=== PATIENT | female | born 2000 | race African-American/Black ===

== ENCOUNTER 2024-09-04 14:59 | Outpatient (CLI) | payer OTHER, SELFPAY ==
--- OUTSIDE RECORDS SUMMARY | 2024-09-04 15:04 | XMS_ITS | Patient Health Record ---
Author Organization Formerly [facility], [facility] Address [address] [place] [address] Care Team Providers Care Regulatory Affairs Intern Name Role Phone RickSosa hernandez Primary Care Provider Cata Cordero Unavailable [phone] Annie Esquivel Unavailable [phone] Allergies Allergen (clinical drug ingredient) Drug/Non Drug Allergy documented on EMR Reaction Allergy Type Onset Date Status Pollen pollen (uncoded) congestion Allergy Ac tive Results Component Value Reference Range Notes One Specimen Identifier Reviewed date:12/19/2023 08:51:16 AM Interpretation: Performing Lab:[facility], [address] [facility], Phone - [phone], Director - Lexus Notes/Report: One Specimen Identifier The specimen received included only one patient identifier on the primary collection container. Our laboratory accrediting agency states All primary specimen containers must be labeled with 2 identifiers at the time of collection. Valproic Acid (Depakote)(R), S Reviewed date:12/19/2023 08:50:23 AM Interpretation: Performing Lab:[facility], [address] [facility], Phone - [phone], Director - Lexus Notes/Report: Valproic Acid (Depakote)(R),S 27 50-100 ug/m L Detection Limit = 4 <4 indicates None Detected . Toxicity may occur at levels of 100-500. Measurements of free unbound valproic acid may improve the assess- ment of clinical response. Reason For Referral Reason Therapy- has [facility] ins urance Diagnosis 1 Bipolar 1 disorder, depressed (F31.9) Diagnosis 2 YEMI (generalized anx iety disorder) (F41.1) Referral Organization [facility] Referring Provider First Name Sosa Referring Provider Last Name Rick Referring Provider Speciality Psychiatry Referred Provider Specialty [facility]al [facility] General Notes Sosa Cabrera 03:48:24 PM > Client with Bipolar 1 and YEMI. Does not have many social supports in place outside of family. States she would like to begin therapy again (last did with Citlaly at [facility]). Please refer for how to start. Thank you! Clinical Notes Mary Read 08/13/2024 12:50:01 PM >HN called the client to provide her with the number to [facility] to see if she needs to complete the intake or if she is still open in TIER. Client knows that the intake can take about 15mins. Client stated she would call on her own, and she is aware she can reach out to the HN if she needs assistance at any time., Mary Read 08/27/2024 11:40:19 AM >HN looked in TIER and saw a note that the client completed the intake for therapy, but there were no open appointments to get her scheduled for her first patient appointment. HN reached out to the the client to remind her that today was a same day appointment day and so is tomorrow. HN and client called [facility] again for a second time and still could not get the client an appointment. Referral Priority Routine Medications Medication SIG (Take, Route, Frequency, Duration) Notes Start Date End Date Status traZODone HCl 50 MG Oral for 30 Days Not-Taking Topiramate 25 MG 1 tablet with evenin g meal for 14 days, then 2 tabs with evening meal Orally Once a day for 30 days 03/12/2024 Not-Taking QUEtiapine Fumarate 400 MG 1 tablet Oral Once a day for 30 days Active Social History Tobacco Use: Social History Observation Description Date Details (start date - stop date) Never Smoker NA - NA Sex Assigned At : Social History Observation Description Sex Assigned At Female Alcohol Screen (Audit-C) Question Answer Notes Did you have a drink containing alcohol in the p ast year? Yes Tobacco Control (Standard) Question Answer Notes Tobacco use: Nonsmoker Problems Problem Type SNOMED Code ICD Code Onset Dates Problem Status W/U Status Risk Notes Problem Morbid obesity (disorder) (986887680) Morbid (severe) obesity due to excess calories (E66.01) Active confirmed Problem Depression (904583583) Depression (F32.9) 2 Active confirmed Problem Obesity (190669322) Obesity (E66.9) Active confirmed Problem Generalized anxiety disorder (85844579) YEMI (generalized anxiety disorder) (F41.1) Active confirmed Problem Weight loss (756590273) Weight loss (R63.4) Active confirmed Problem Liver enzymes abnormal (535966555) Abnormal liver enzymes (R74.8) Active confirmed Problem Bipolar disorder (03986960) Bipolar 1 disorder, depressed (F31.9) Active confirmed Problem Obesity (609332830) Obesity (BMI 30-39.9) (E66.9) Active confirmed Problem Follow-up status (761295520) Follow up (Z09) Active confirmed Problem Obesity (067444568) Obesity, unspecified classification, unspecified obesity type, unspecified whether serious comorbidity present (E66.9) Active confirmed Vital Signs Heart Rate 60 /min 08/11/2024 Temperature 98.2 degrees Fahrenheit 08/11/2024 Respiratory Rate 16 /min 08/11/2024 Blood pressure diastolic 70 mm Hg 08/11/2024 Oximetry 98 % 08/11/2024 Height 59 in in 08/11/2024 Blood pressure systolic 120 mm Hg 08/11/2024 Weight 175 lbs lbs 08/11/2024 BMI 35.34 kg/m2 08/11/2024 Encounters Encounter Location Date Provider Diagnosis [address] [place] [address] 12/14/2023 Cata Cordero [address] [place] [address] 10/26/2023 Cata Cordero Nutritional counseling Z71.3 and Bipolar 1 disorder, depressed F31.[address] [place] [address] 12/14/2023 Cata Cordero Bipolar 1 disorder, depressed F31.9 and YEMI (generalized anxiety disorder) F41.[address] [address] 12/17/2023 Sosa Cabrera [address] [address] 03/03/2024 Sosa Cabrera Nutritional counseling Z71.3 ; Bipolar 1 disorder, depressed F31.9 and YEMI (generalized anxiety disorder) F41.[address] [address] 03/12/2024 Annie Esquivel Nutritional counseling Z71.3 ; Establishing care with new doctor, encounter for Z71.89 ; Screening for deficiency anemia Z13.0 ; Screening for metabolic disorder Z13.228 ; Exposure to potential infection Z20.9 and Obesity (BMI 30-39.9) E66.[address] [address] 03/12/2024 Annie Esquivel Exposure to potential infection Z20.9 ; Screening for deficiency anemia Z13.0 and Screening for metabolic disorder Z13.228 [address] [address] [place] [address] 03/25/2024 Sosa Cabrera Nutritional counseling Z71.3 ; Bipolar 1 disorder, depressed F31.9 and YEMI (generalized anxiety disorder) F41.[address] [place] [address] 08/11/2024 Sosa Cabrera Nutritional counseling Z71.3 ; Bipolar 1 disorder, depressed F31.9 and YEMI (generalized anxiety disorder) F41.1 [facility] [place] [address] 02/25/2024 Sosa Cabrera [facility] [address] [place] [address] 10/02/2023 Sosa Cabrera Bipolar 1 disorder, depressed F31.9 Replaced By [facility] [address] [address] 12/06/2023 Cata Cordero Bipolar 1 disorder, depressed F31.[address] [place] [address] [place] [address] 01/24/2024 Sosa Rick Replaced By [facility] [address] [place] [address] 03/11/2024 Sosa Rick [address] [place] [address] 03/14/[address] [place] [address] [place] [address] 03/18/2024 Sosa Rick Assessments Encounter Date Diagnosis (ICD Code) Assessment Notes Treatment Notes Treatment Clinical Notes Section Notes 10/02/2023 Bipolar 1 disorder, depressed (ICD-10 - F31.9) 10/26/2023 Nutritional counseling (ICD-10 - Z71.3) 12/06/2023 Bipolar 1 disorder, depressed (ICD-10 - F31.9) 12/14/2023 Bipolar 1 disorder, depressed (ICD-10 - F31.9) Continue current medications, seroquel is being taken PRN, but has plenty. Continue services as scheduled. Depakote level ordered. May self-administer medications or be administered own oral medications per [facility] protocols. Provided informed consent with understanding of side effects, adverse effects, risks and benefits as well as alternative treatments as previously discussed and with the above recommended medications & other aspects of the treatment program. Agrees to return sooner if symptoms worsen or suicidal or homicidal ideations occur. 03/03/2024 Nutritional counseling (ICD-10 - Z71.3) 03/12/2024 Establishing care with new doctor, encounter for (ICD-10 - Z71.89) 03/12/2024 Nutritional counseling (ICD-10 - Z71.3) 03/12/2024 Exposure to potential infection (ICD-10 - Z20.9) 03/25/2024 Nutritional counseling (ICD-10 - Z71.3) 08/11/2024 Nutritional counseling (ICD-10 - Z71.3) 08/11/2024 Bipolar 1 disorder, depressed (ICD-10 - F31.9) Take as prescribed. Reviewed purpose (mood stability), benefits, and risks - low blood pressure, metabolic syndrome with high cholesterol or high blood sugars, change in cardiac conduction, nausea, vomiting, temporary or permanent movement disorders, and akathisia. 03/12/2024 Screening for deficiency anemia (ICD-10 - Z13.0) 03/25/2024 Bipolar 1 disorder, depressed (ICD-10 - F31.9) Continue with quetiapine, discussed possible movement disorder. client reports this has improved some with stopping the haloperidol. encouraged client to continue monitoring movements and if they do not go away or if they worsen, to and let the office know at her earliest convenience. discussed the importance of this in length. next appt in-office to monitor movements. Take as prescribed. Reviewed purpose (mood stability), benefits, and risks - low blood pressure, metabolic syndrome with high cholesterol or high blood sugars, change in cardiac conduction, nausea, vomiting, temporary or permanent movement disorders, and akathisia. Explained that no medication can be guaranteed to be 100% safe for baby or mother. 03/12/2024 Screening for deficiency anemia (ICD-10 - Z13.0) 03/03/2024 Bipolar 1 disorder, depressed (ICD-10 - F31.9) States doing well with current regimen. Is open to MENDOZA with haloperidol. Wants to talk with her OBGyn regarding future fertility. May discuss further at next appt regarding MENDOZA. Continue current regimen. Client states not actively tring to become . Wean down and off benztropine if/as tolerated. Take as prescribed. Reviewed purpose (mood stability), benefits, and risks - low blood pressure, metabolic syndrome with high cholesterol or high blood sugars, change in cardiac conduction, nausea, vomiting, temporary or permanent movement disorders, and akathisia. Explained that no medication can be guaranteed to be 100% safe for baby or mother. 12/14/2023 YEMI (generalized anxiety disorder) (ICD-10 - F41.1) 10/26/2023 Bipolar 1 disorder, depressed (ICD-10 - F31.9) She had not taken Seroquel since leaving the hospital. She worries about the Seroquel weight gain. has not taken Latuda. it looks like it should be covered with insurance. Has taken Zyprexa, Abilify, and Seroquel. Labs were recently done in the hospital. May self-administer medications or be administered own oral medications per [place] protocols. Provided informed consent with understanding of side effects, adverse effects, risks and benefits as well as alternative treatments as previously discussed and with the above recommended medications & other aspects of the treatment program. Agrees to return sooner if symptoms worsen or suicidal or homicidal ideations occur. 03/03/2024 YEMI (generalized anxiety disorder) (ICD-10 - F41.1) Encouraged therapy. 03/12/2024 Screening for metabolic disorder (ICD-10 - Z13.228) 03/12/2024 Screening for metabolic disorder (ICD-10 - Z13.228) 03/25/2024 YEMI (generalized anxiety disorder) (ICD-10 - F41.1) Encouraged therapy. 08/11/2024 YEMI (generalized anxiety disorder) (ICD-10 - F41.1) Encouraged therapy. 03/12/2024 Exposure to potential infection (ICD-10 - Z20.9) 03/12/2024 Obesity (BMI 30-39.9) (ICD-10 - E66.9) 03/03/2024 Other Reasons, potential benefits, potential risks, interactions and side effects of all medications were discussed. The Patient/Guardian asked appropriate questions, appeared to understand the answers, and decided to accept the treatment and continue being followed. Alternatives and expected course without treatment were reviewed. The Patient/Guardian is aware of the need to contact the office or return for an earlier appointment if any problems or concerns arise. May also contact the 24-hour crisis hotline ([facility]), refer to the closest emergency room or call 911 if new symptoms arise of existing symptoms worsen. The Patient/Guardian is aware that this would apply to symptoms like: suicidal ideation, homicidal ideation, high risk behaviors, manic symptoms, psychotic symptoms, physical symptoms, or any other symptoms that may be dangerous to self or others. Greater than 50% of time spent on coordination and counseling where psychopharmacology as well as psychotherapeutic interventions were discussed along with review of treatments in the past. Education provided concerning need for adequate hydration. Patient/Guardian verbalized understanding of education, treatment plan and follow up. 03/25/2024 Other Reasons, potential benefits, potential risks, interactions and side effects of all medications were discussed. The Patient/Guardian asked appropriate questions, appeared to understand the answers, and decided to accept the treatment and continue being followed. Alternatives and expected course without treatment were reviewed. The Patient/Guardian is aware of the need to contact the office or return for an earlier appointment if any problems or concerns arise. May also contact the 24-hour crisis hotline ([facility]), refer to the closest emergency room or call 911 if new symptoms arise of existing symptoms worsen. The Patient/Guardian is aware that this would apply to symptoms like: suicidal ideation, homicidal ideation, high risk behaviors, manic symptoms, psychotic symptoms, physical symptoms, or any other symptoms that may be dangerous to self or others. Greater than 50% of time spent on coordination and counseling where psychopharmacology as well as psychotherapeutic interventions were discussed along with review of treatments in the past. Education provided concerning need for adequate hydration. Patient/Guardian verbalized understanding of education, treatment plan and follow up. This session was completed telephonically with client/parental/guard fercho consent: Unable to determine movement status, assess appearance, affect, AIMS, or vital signs. 08/11/2024 Other Reasons, potential benefits, potential risks, interactions and side effects of all medications were discussed. The Patient/Guardian asked appropriate questions, appeared to understand the answers, and decided to accept the treatment and continue being followed. Alternatives and expected course without treatment were reviewed. The Patient/Guardian is aware of the need to contact the office or return for an earlier appointment if any problems or concerns arise. May also contact the 24-hour crisis hotline ([facility]), refer to the closest emergency room or call 911 if new symptoms arise of existing symptoms worsen. The Patient/Guardian is aware that this would apply to symptoms like: suicidal ideation, homicidal ideation, high risk behaviors, manic symptoms, psychotic symptoms, physical symptoms, or any other symptoms that may be dangerous to self or others. Greater than 50% of time spent on coordination and counseling where psychopharmacology as well as psychotherapeutic interventions were discussed along with review of treatments in the past. Education provided concerning need for adequate hydration. Patient/Guardian verbalized understanding of education, treatment plan and follow up. Plan Of Treatment No Information Insurance Providers Payer Name Payer Address Payer Phone Subscriber Number Group Number Insured Name Patient Relationship to Insured Coverage Start Date Coverage End Date [facility] [address] [place] [address] [id number] [place] Self - patient is the insured 2 3 [facility] [address] [place] [address] [id number] Harsh Madisonartemio Jones Child - Insured has Financial Responsibility 3 MEDICAID [address] [facility] [address] [id number] [place] [facility] Self - patient is the insured 2 2 Medical (General) History Medical History History ICD Code Denies Past Medical History Surgical History Surgery Date(Month/Year) Hospitalization History Reason Date(Month/Year) [facility] 09/2023 [facility] 01/2024
--- OUTSIDE RECORDS SUMMARY | 2024-09-04 15:04 | XMS_ITS | Clinical Summary ---
Author Organization [facility] Address [address] [place] [address] Care Team Providers Care Mental Health Aide Name Role Phone None, Physician Primary Care Provider Unavailabl e Source Comments [facility],non-owned Affiliates and Associated Physician Practices is amultiple site organization consisting of ambulatory clinics and hospital sitesin [place], [place] and [place]. This disclosure is being madepursuant to the Care Everywhere program and may not contain all information available regarding this patient. Last updated [email or web address] [facility] Allergies No known active allergies Medications * This document contains information received from the source organization and may not represent a complete record from that organization. * Be aware that medications may not be up to date on this document. Alwaysverify current medications with the patient. hydrOXYzine HCl (Atarax) 50 MG tabletIndicati ons:Anxiety Take 1 (one) tablet by mouth every 6 hours as needed Reasons: Feeling Anxious 30 tablet 06/20/2024 12:02 PM INSTRUCTOR OF EDUCATION 5 Active divalproex ER 24hr (Depakote ER) 500 MG tabletIndicati ons:Mixed Bipolar Affective Disorder Take 3 (three) tablets by mouth at bedtime Reasons: MIXED BIPOLAR AFFECTIVE DISORDER 90 tablet 06/20/2024 12:02 PM INSTRUCTOR OF EDUCATION 5 Active traZODone (Desyrel) 50 MG tabletIndicati ons:Insomnia Take 1 (one) tablet by mouth nightly as needed for Insomnia Reasons: Trouble Sleeping 30 tablet 06/20/2024 12:02 PM INSTRUCTOR OF EDUCATION 5 Active prazosin (Minipress) 1 MG capsuleIndicat ions:Nightmare s,Posttraumati c Stress Disorder Take 1 (one) capsule by mouth at bedtime Reasons: Frightening Dreams, Posttraumatic Stress Disorder 30 capsule 06/20/2024 12:02 PM INSTRUCTOR OF EDUCATION 5 Active ziprasidone (Geodon) 40 MG capsuleIndicat ions:Bipolar Mood Disorder Take 1 (one) capsule by mouth 2 times daily with morning and evening meal Reasons: Manic-Depression 60 capsule 06/20/2024 12:02 PM INSTRUCTOR OF EDUCATION 5 Active Active Problems Problem Noted Date Diagnosed Date Bipolar disorder, current ep isode manic without psychotic features, severe 06/01/2024 Cannabis use disorder, mild, abuse 06/01/2024 Post-traumatic stress disorder, chronic 06/01/19 25 Marijuana use 05/31/2024 Manic behavior 05/31/2024 Bizarre behavior 05/31/2024 Social History Tobacco Use Types Packs/Day Years Used Date Smoking Tobacco: Never Passive Smoke Exposure: Never Smokeless Tobacco: Never Tobacco Cessation:Counseling Given: Yes Alcohol Use Standard Drinks/Week Comments Yes 0 (1 standard drink = 0.6 oz pur e alcohol) occasional AUDIT-C Answer Date Recorded Q1: How often do you have a drink containing alc ohol? Monthly or less 06/01/2024 Q2: How many drinks containi ng alcohol do you have on a typical day when you are drinking? 1 or 2 06/01/2024 Q3: How often do you have si x or more drinks on one occasion? Never 06/01/2024 Overall Financial Resource Strain (CARDIA) Answe r Date Recorded How hard is it for you to pa y for the very basics like food, housing, medical care, and heating? Patient unable to answer 06/01/2024 [facility] - Occupational Stress Questionnaire Answer Date Recorded Do you feel stress - tense, restless, nervous, or anxious, or unable to sleep at night because your mind is troubled all the time - these days? Patient unable to answer 06/01/2024 Hunger Vital Sign Answer Date Recorded Within the past 12 months, y ou worried that your food would run out before you got the money to buy more. Patient unable to answer 06/01/2024 Within the past 12 months, t he food you bought just didn't last and you didn't have money to get more. Patient unable to answer 06/01/2024 PRAPARE - Transportation Answer Date Re corded In the past 12 months, has l ack of transportation kept you from medical appointments or from getting medications? Patient unable to answer 06/01/2024 In the past 12 months, has l ack of transportation kept you from meetings, work, or from getting things needed for daily living? Patient unable to answer 06/01/2024 Housing Stability Vital Sign Answer Eddie e Recorded In the last 12 months, was t here a time when you were not able to pay the mortgage or rent on time? Patient unable to answer 06/01/2024 In the past 12 months, how m any times have you moved where you were living? Not on file 06/01/2024 At any time in the past 12 m [facility], were you homeless or living in a fdc (including now)? Patient unable to answer 06/01/2024 Comments Unknown Sex and Gender Information Value Date Recorded Sex Assigned at Not on file Legal Sex Female 12:36 PM INSTRUCTOR OF EDUCATION Gender Identity Not on file Sexual Orientation Not on file Last Filed Vital Signs Vital Sign Reading Time Taken Comments Blood Pressure 123/75 06/20/2024 9:11 AM INSTRUCTOR OF EDUCATION Pulse 64 06/20/2024 9:11 AM INSTRUCTOR OF EDUCATION Temperature 36.4 C (97.5 F) 06/20/2024 9:11 AM INSTRUCTOR OF EDUCATION Respiratory Rate 14 06/20/2024 9:11 AM INSTRUCTOR OF EDUCATION Oxygen Saturation 100% 06/20/2024 9:11 AM INSTRUCTOR OF EDUCATION Inhaled Oxygen Concentration - - Weight 53.2 kg (117 lb 3.2 oz) 08/05/2020 5:27 P M CDT Height 142.2 cm (4' 8 ) 08/05/2020 5:27 PM CDT Body Mass Index 26.28 08/05/2020 5:27 PM CDT Plan of Treatment Health Maintenance Due Date Last Done Comments PAP SMEAR 1999 HPV VACCINE (1 - 3-dose series) 09/27/2014 DTAP/TDAP/TD VACCINES (1 - Tdap) 09/27/2018 HEPATITIS B VACCINE (1 of 3 - 19+ 3-dose series) 09/27/2018 COVID-19 VACCINE (2023-2 5 season) 2023 INFLUENZA VACCINE (Season Ended) 2024 CHLAMYDIA/GONORRHEA SCREENING 06/05/2025 06/05/2024 ZOSTER VACCINE (1 of 2) 09/27/2049 HEPATITIS C SCREENING Completed 01/17/2024 HIV SCREENING Completed 06/08/2024 HIB VACCINE Aged Out No longer eligi ble based on patient's age to complete this topic MENINGOCOCCAL (Group B) VACC INE SHARED DECISION-MAKING Aged Out No longer eligibl e based on patient's age to complete this topic MENINGOCOCCAL GROUPS A/C/Y/W VACCINE Aged Out No longer eligible b ased on patient's age to complete this topic PNEUMOCOCCAL VACCINE Aged Out No long er eligible based on patient's age to complete this topic Procedures Procedure Name Priority Date/Time Associated Diagnosis Comments VALPROIC ACID LEVEL Timed 06/15/2024 8 :10 AM INSTRUCTOR OF EDUCATION VALPROIC ACID LEVEL Timed 06/08/2024 6 :51 AM INSTRUCTOR OF EDUCATION HIV-1 HIV-2 ANTIBODY + HIV P24 AG PANEL AM Draw 06/08/2024 6:51 AM INSTRUCTOR OF EDUCATION BASIC METABOLIC PANEL (CALCIUM TOTAL) AM Draw 06/08/2024 6:51 AM INSTRUCTOR OF EDUCATION CHLAMYDIA + GC AMPLIFIED PROBE Routine 06/05/2024 1:13 AM INSTRUCTOR OF EDUCATION from Last 3 Months or Most Recently Relevant to Health Maintenance Results * VALPROIC ACID LEVEL (06/15/2024 8:10 AM INSTRUCTOR OF EDUCATION) Only the most recent of2 resultswithin the time period is included. Valproic Acid 82.6 50 - 100 ug/mL 06/15/2024 8:37 AM INSTRUCTOR OF EDUCATION [facility] Blood BLOOD SPECIMEN / Unknown Venipuncture / Unknown 06/15/2024 8:10 AM INSTRUCTOR OF EDUCATION 06/15/2024 8:14 AM INSTRUCTOR OF EDUCATION us Nik Quiroz MD LAB - CHEMISTRY ORDERABLES F inal Result [facility] [address] [place] [address] * HIV-1 HIV-2 ANTIBODY + HIV P24 AG PANEL (06/08/2024 6:51 AM INSTRUCTOR OF EDUCATION) Pathologist [facility] [place] HIV1/2 Ab + P24 Ag Non Reactive Non Reactive 06/08/2024 8:37 AM [facility] Blood BLOOD SPECIMEN / Unknown Venipuncture / Unknown 06/08/2024 6:51 AM INSTRUCTOR OF EDUCATION 06/08/2024 6:54 AM INSTRUCTOR OF EDUCATION Narrative [facility] - 06/08/2024 8:37 AM INSTRUCTOR OF EDUCATION No Laboratory evidence of HIV infection. us Jenna Kramer MD LAB - CHEMISTRY ORDERABLES Final Result [facility] [address] [place] [address] * (ABNORMAL) BASIC METABOLIC PANEL (CALCIUM TOTAL) (06/08/2024 6:51 AM INSTRUCTOR OF EDUCATION) Pathologist [facility] [place] Glucose 110(H) 70 - 99 mg/dL 06/08/2024 7:08 AM [facility] Sodium 138 136 - 145 mmol/L 06/08/2024 7:08 AM [facility] Potassium 3.8 3.5 - 5.1 mmol/L 06/08/2024 7:08 AM [facility] Chloride 108(H) 98 - 107 mmol/L 06/08/2024 7:08 AM [facility] CO2 22 22 - 29 mmol/L 06/08/2024 7:08 AM [facility] Calcium 9.2 8.4 - 10.4 mg/dL 06/08/2024 7:08 AM [facility] Anion Gap 8 6 - 16 mmol/L 06/08/2024 7:08 AM [facility] BUN 11 5.3 - 18.7 mg/dL 06/08/2024 7:08 AM [facility] Creatinine 0.81 0.57 - 1.11 mg/dL 06/08/2024 7:08 AM [facility] eGFR by CKD-EPI >90 >=90 mL/min/1.7 3 m2 06/08/2024 7:08 AM [facility] Blood BLOOD SPECIMEN / Unknown Venipuncture / Unknown 06/08/2024 6:51 AM INSTRUCTOR OF EDUCATION 06/08/2024 6:54 AM INSTRUCTOR OF EDUCATION us Jenna Kramer MD LAB - CHEMISTRY ORDERABLES Final Result [facility] [address] [place] [address] * CHLAMYDIA + GC AMPLIFIED PROBE (06/05/2024 1:13 AM INSTRUCTOR OF EDUCATION) Chlamydia Amplified Probe Negative Negative 06/05/2024 9:30 PM INSTRUCTOR OF EDUCATION [facility] GC Amplified Probe Negative Negative 06/05/2024 9:30 PM INSTRUCTOR OF EDUCATION [facility] Microbiology URINE / Unknown Collection / Unknown 06/05/2024 1:13 AM INSTRUCTOR OF EDUCATION 06/05/2024 1:29 AM INSTRUCTOR OF EDUCATION Narrative [facility] - 06/05/2024 9:30 PM INSTRUCTOR OF EDUCATION Results based on detection/no detection of ribosomal RNA by amplified method. Jenna Kramer MD LAB - MICROBIOLOGY ORDERABL ES Final Result Performing Organization Address City/[facility] [address]/ZIP Co de Phone Number [facility] [address] [place] [address], [facility] [phone] from Last 3 Months or Most Recently Relevant to Health Maintenance Insurance [facility] [place] [address] CARE [facility] Advance Directives * Full Code (Latest Code Status on File) Date Activated Date Inactivated Comments 06/01/2024 8:21 AM 06/20/2024 3:38 PM Care Teams Mental Health Aide Relationship Specialty Start Date End Date None, Physician [address] [place] [address] PCP - General 03/17/24
--- OUTSIDE RECORDS SUMMARY | 2024-09-04 15:04 | XMS_ITS | Clinical Summary ---
Author Organization [facility] Address [address] [place] [address] Care Team Providers Care Manager Delivery Name Role Phone Unknown, Notinfile Primary Care Provider Unavail able Allergies No known active allergies Medications * This document contains information received from the source organization and may not represent a complete record from that organization. ondansetron (ZOFRAN) 4 mg tablet Take 1 tablet (4 mg total) by mouth every 6 (six) hours 12 tablet 05/05/2024 Active Immunizations Immunization Administration Dates Next Due Tdap 01/17/2024 Social History Tobacco Use Types Packs/Day Years Used Date Smoking Tobacco: Never Assessed Personal Safety Answer Date Recorded Have you ever been in or are you currently in a harmful physical or emotional relationship or is someone making you feel afraid or unsafe? Denies 05/05/2024 Comments Unknown Sex and Gender Information Value Date Recorded Sex Assigned at Not on file Legal Sex Female 12:01 AM MATTING PRESS TENDER Gender Identity Not on file Sexual Orientation Not on file Obstetrics History Last Filed Vital Signs Vital Sign Reading Time Taken Comments Blood Pressure 124/83 05/05/2024 10:34 AM MATTING PRESS TENDER Pulse 78 05/05/2024 10:34 AM MATTING PRESS TENDER Temperature 36.7 C (98.1 F) 05/05/2024 10:34 AM MATTING PRESS TENDER Respiratory Rate 18 05/05/2024 10:34 AM MATTING PRESS TENDER Oxygen Saturation 100% 05/05/2024 10:34 AM MATTING PRESS TENDER Inhaled Oxygen Concentration - - Weight 74.8 kg (165 lb) 05/05/2024 10:34 AM MATTING PRESS TENDER Height 149.9 cm (4' 11 ) 05/05/2024 10:34 AM MATTING PRESS TENDER Body Mass Index 33.33 05/05/2024 10:34 AM MATTING PRESS TENDER Plan of Treatment Health Maintenance Due Date Last Done Comments Cervical Cancer Screening 1999 Depression Screening 1999 Hepatitis C Screening 1999 Varicella Vaccines (2 of 2 - 2-dose childhood series) 2003 12/25/2000 HPV Vaccines (1 - 3-dose series) 09/27/2014 Regular Well Visit/Exam 18-64 09/27/2017 Influenza Vaccine (Season Ended) 2024 DTaP/Tdap/Td Vaccine (8 - Td or Tdap) 01/16/2034 01/17/2024, 02/07/2013, 12/21/2004, Additional history exists Hepatitis B Screening Completed 08/10/2000 , 02/14/2000, 1999 Pneumococcal vaccine <65 Aged Out 12/25/2000 No longer eligible based on patient's age to complete this topic Insurance * Guarantor: [employer] Account Type Relation to Patient Date of Phone Billing Address Personal/Family Self 2000 [id number] [place] [address] [place] * Guarantor: [employer] Account Type Relation to Patient Date of Phone Billing Address Personal/Family Self 2000 [address] [place] [address] [employer] Care Teams Manager Delivery Relationship Specialty Start Date End Date Unknown, Notinfile PCP - General 05/12/20
--- OUTSIDE RECORDS SUMMARY | 2024-09-04 15:04 | XMS_ITS ---
Author Organization [facility] Address [address] [place] [address] Care Team Providers Care Subscription Agent Name Role Phone Sosa Cabrera Primary Care Provider REASON FOR VISIT r/s from 07/21; last seen 03/25/24--1 month f u Social History Sex Assigned At : Social History Observation Description Sex Assigned At Female Encounters Encounter Location Date Provider Diagnosis [address] [address] 07/28/2024 Sosa Cabrera Plan Of Treatment No Information Progress Notes * Ariela HOUSEhDOB:2000 (23 yo F)Acc No.[id number]:07/28/2024 UNLOCKED PROGRESS NOTE Patient: Chandrakant BENSON Tres Provider: Flavio Cabrera, MSN, NURSE SITTER, CATHODE BUILDER-C :2000 A ge:23 Y S ex:Female Date:07/28/2024 Address:[address] [place], [place] [id number] Subjective: * Chief Complaints: * 1 . R/s from 07/21; last seen 03/25/24--1 month f u. * Medical History: Objective: * Vitals: Assessment: Plan: * Treatment: * * Electronic signature of Randi Cabrera [id number] on 09/04/2024 at 03:04 PM CDT Sign off status: Pending * Provider: Flavio Cabrera, ODETTE, NURSE SITTER, CATHODE BUILDER-C Date: 0 07/28/2024 Generated for Mathew sorenson/Shelly/Nayeli on: 0 09/04/2024 03:04 PM CDT
--- OUTSIDE RECORDS SUMMARY | 2024-09-04 15:04 | XMS_ITS | Referral Summary ---
Author Organization [facility] Address [address] [place] [address] Care Team Providers Care Substation Technician Name Role Phone Unknown, Notinfile Primary Care [...] on file Legal Sex Female 12:01 AM UNDERCUTTER Gender Identity Not on file Sexual Orientation Not on file Last Filed Vital Signs Vital Sign Reading Time Taken Comments Blood Pressure 124/83 05/05/2024 10:34 AM UNDERCUTTER Pulse 78 05/05/2024 10:34 AM UNDERCUTTER Temperature 36.7 C (98.1 F) 05/05/2024 10:34 AM UNDERCUTTER Respiratory Rate 18 05/05/2024 10:34 AM UNDERCUTTER Oxygen Saturation 100% 05/05/2024 10:34 AM UNDERCUTTER Inhaled Oxygen Concentration - - Weight 74.8 kg (165 lb) 05/05/2024 10:34 AM UNDERCUTTER Height 149.9 cm (4' 11 ) 05/05/2024 10:34 AM UNDERCUTTER Body Mass Index 33.33 05/05/2024 10:34 AM UNDERCUTTER Plan of Treatment Not on file Insurance [employer] Care Teams Substation Technician Relationship Specialty Start Date End Date Unknown, Notinfile PCP - General 05/12/20
--- OUTSIDE RECORDS SUMMARY | 2024-09-04 15:04 | XMS_ITS ---
Author Organization [facility] Address [address] [place] [address] Care Team Providers Care Trade Clerk Name Role Phone Sosa Cabrera Primary Care Provider REASON FOR VISIT last seen 03/25/24--1 month f u Social History Sex Assigned At : Social History Observation Description Sex Assigned At Female Encounters Encounter Location Date Provider Diagnosis [address] [address] 07/21/2024 Sosa Cabrera Plan Of Treatment No Information Progress Notes * Ariela HOUSEhDOB:2000 (23 yo F)Acc No.[id number]:07/21/2024 UNLOCKED PROGRESS NOTE Patient: Chandrakant BENSON Tres Provider: Flavio Cabrera, MSN, CENTERLESS GRINDING MACHINE ADJUSTER, OFFICE MANAGER-C :2000 A ge:23 Y S ex:Female Date:07/21/2024 Address:[address] [place], [place] [id number] Subjective: * Chief Complaints: * 1 . Last seen 03/25/24--1 month f u. * Medical History: Objective: * Vitals: Assessment: Plan: * Treatment: * * Electronic signature of Randi Cabrera , [id number] on 09/04/2024 at 03:04 PM CDT Sign off status: Pending * Provider: Flavio Cabrera, ODETTE, CENTERLESS GRINDING MACHINE ADJUSTER, OFFICE MANAGER-C Date: 0 07/21/2024 Generated for Mathew sorenson/Shelly/Iainitting on: 0 09/04/2024 03:04 PM CDT
[2024-09-04 16:36] LABS: Syphilis IgG/IgM Antibody Negative (Negative)
[2024-09-04 16:38] LABS: Hepatitis B Surface Antigen Negative (Negative)
[2024-09-04 16:49] LABS: HIV 1/2 Ab P24 Ag Result Negative (Negative)
[2024-09-04 16:55] LABS: Hepatitis C Virus Antibody Negative (Negative)
== END 2024-09-04 15:00 | disposition home or self-care (01) ==
LOC: ANHLAB 15:02
PROVIDERS: Visit Provider Nurse Practitioner Obstetrics & Gynecology
DX: Z11.3 Encounter for screening for infections with a predominantly sexual mode of transmission (principal)
CPT/HCPCS: 36415; 86593; 86695; 86696; 86703; 86803; 87340; G0432